=== PATIENT | female | born 1960 | race Caucasian/White ===

== ENCOUNTER 2020-11-11 21:50 | Emergency (ER) | payer BC, OTHER ==
[~2020-11-11] VITALS: Ht 167.6 cm; Wt 70.3 kg
[2020-11-12] MEDS ORDERED: ONDA4 PO (00:56)
[2020-11-12] MEDS ORDERED: Norco 5-325 Ta1 EACH PO (00:56)
== END 2020-11-12 01:22 | disposition home or self-care (01) ==
LOC: ER 21:50
DX: S82.831A Other fracture of upper and lower end of right fibula, initial encounter for closed fracture (principal); W01.0XXA Fall on same level from slipping, tripping and stumbling without subsequent striking against object, initial encounter
CPT/HCPCS: 29515; 73610; 96374; 96375; 96376; 99283-25; A9270; J2270; J2405

== ENCOUNTER 2020-11-18 12:07 | Day surgery (SDC) | payer OTHER, BC ==
[~2020-11-18] VITALS: Ht 167.6 cm; Wt 68.3 kg
[~2020-11-18 12:07] MED LIST: Norco 5-325 Ta1 EACH PO; ONDA4 PO
--- NOTE | 2020-11-18 16:42 | NUR ---
11/18/20 1642 Karolyn Broderick PT. VERBALIZES PAIN RATING A "8-9" ON RIGHT LOWER EXTREMITY. PT. DESCRIBES THROBBING PAIN, RIGHT ANKLE BONE PAIN & THEN POSTERIOR RIGHT LOWER EXTREMITY. ALSO PT. C/O IV PAIN TOO, SITE WITHOUT REDNESS DESCRIBES PINCHY.
== END 2020-11-18 17:28 | disposition home or self-care (01) ==
LOC: ORSCSDS 12:07
PROVIDERS: Podiatrist Foot & Ankle Surgery
PROC: 0QSJ04Z Reposition Right Fibula with Internal Fixation Device, Open Approach (ICD-10-PCS; principal; 2020-11-18 13:15)
DX: S82.61XA Displaced fracture of lateral malleolus of right fibula, initial encounter for closed fracture (principal); I10 Essential (primary) hypertension; Z87.891 Personal history of nicotine dependence; Z79.899 Other long term (current) drug therapy
CPT/HCPCS: A9270; C1713; J0171; J0690; J1100; J1170; J2405; J2550; J2704; J3010; J7120